=== PATIENT | male | born 1965 | race Caucasian/White ===

== ENCOUNTER 2021-11-17 05:11 | Emergency (ER) | payer SELFPAY ==
[2021-11-17 06:49] LABS: HEMOGLOBIN 18.5 gm/dl (14.0-17.5); RED BLOOD COUNT 5.83 M/UL (4.20-5.50); WHITE BLOOD COUNT 12.3 K/UL (4.5-11.0)
[2021-11-17 07:13] LABS: BUN/CREATININE RATIO 10 (0-10)
== END 2021-11-17 11:37 | disposition other institution (70) ==
LOC: ER1 05:11
PROVIDERS: Physician Assistant
DX: T82.898A Other specified complication of vascular prosthetic devices, implants and grafts, initial encounter (principal); I74.5 Embolism and thrombosis of iliac artery; F17.200 Nicotine dependence, unspecified, uncomplicated; Z51.81 Encounter for therapeutic drug level monitoring
CPT/HCPCS: 71045; 75635; 80053; 82550; 82553; 84484; 85025; 85379; 85610; 85730; 96374; 99285; J1644; Q9967